=== PATIENT | male | born 1935 | race American Indian/Alaskan Native ===

== ENCOUNTER → 2020-03-19 | Emergency (ER) | payer OTHER ==
[~2020-03-19] VITALS: Ht 182.9 cm; Wt 78.9 kg
[~2020-03-19] MED LIST: ENALAPRIL MALEAT5 MG
== END | disposition left against medical advice (07) ==
LOC: ER 19:35
DX: Z53.20 Procedure and treatment not carried out because of patient's decision for unspecified reasons (principal)